=== PATIENT | female | born 1980 | race Caucasian/White ===

== ENCOUNTER 2022-10-16 21:00 | Emergency (ER) | payer BC ==
[2022-10-16 21:28] VITALS: RESP 18
--- NOTE | 2022-10-16 22:43 | ED ---
Headache HPI - General Chief Complaint: Headache Stated Complaint: Hypertension, Headache Time Seen by Provider: 10/16/22 21:45 Source: RN notes reviewed, old records reviewed Mode of arrival: ambulatory Limitations: no limitations - History of Present Illness Initial Comments: This is a 42-year-old female to the emergency department today. Patient has multiple complaints today. Patient initial complaint of headache as well as hypertension. Patient's blood pressure has been significantly elevated recently and today. Patient did take some medication for migraine yesterday which did help with recent headache. No current neurological symptoms. Patient is very concerned over elevated blood pressure. MD Complaint: headache, other (Elevated blood pressure) -: unknown Onset Description: gradual Severity scale (1-10): 4 (Blood pressure is asymptomatic aside from headache which is now resolved) Quality: aching Consistency: constant Improves With: nothing Worsens With: none Associated Symptoms: nausea Other Symptoms: chest pain Treatments Prior to Arrival: none - Related Data Previous Rx's Medication Instructions Recorded lisinopriL [Zestril] 5 mg PO DAILY 7 Days #7 tab 10/18/22 Allergies Allergy/AdvReac Type Severity Reaction Status Date / Time No Known Allergies Allergy Verified 10/16/22 21:21 Review of Systems ROS Statement: Those systems with pertinent positive or pertinent negative responses have been documented in the HPI. ROS Other: All systems not noted in ROS Statement are negative. Past Medical History Past Medical History: Hypertension History of Any Multi-Drug Resistant Organisms: None Reported Past Surgical History: No Surgical Hx Reported Past Psychological History: No Psychological Hx Reported Smoking Status: Never smoker Past Alcohol Use History: Occasional Past Drug Use History: Marijuana General Exam Limitations: no limitations General appearance: alert, in no apparent distress Head exam: Present: atraumatic, normocephalic, normal inspection Eye exam: Present: normal appearance, PERRL, EOMI. Absent: scleral icterus, conjunctival injection, periorbital swelling ENT exam: Present: normal exam, mucous membranes moist Neck exam: Present: normal inspection. Absent: tenderness, meningismus, lymphadenopathy Respiratory exam: Present: normal lung sounds bilaterally. Absent: respiratory distress, wheezes, rales, rhonchi, stridor Cardiovascular Exam: Present: regular rate, normal rhythm, normal heart sounds. Absent: systolic murmur, diastolic murmur, rubs, gallop, clicks GI/Abdominal exam: Present: soft, normal bowel sounds. Absent: distended, tenderness, guarding, rebound, rigid Extremities exam: Present: normal inspection, full ROM, normal capillary refill. Absent: tenderness, pedal edema, joint swelling, calf tenderness Back exam: Present: normal inspection Neurological exam: Present: alert, oriented X3, CN II-XII intact Psychiatric exam: Present: normal affect, normal mood Skin exam: Present: warm, dry, intact, normal color. Absent: rash Course Vital Signs 10/16/22 10/16/22 10/16/22 21:22 22:54 23:30 Temperature 97.7 F Pulse Rate 78 69 Respiratory 18 18 Rate Blood Pressure 176/133 189/108 155/85 O2 Sat by Pulse 96 97 Oximetry 10/17/22 00:09 Temperature 97.6 F Pulse Rate 70 Respiratory 18 Rate Blood Pressure 146/88 O2 Sat by Pulse 97 Oximetry - Reevaluation(s) Reevaluation #1: 10/16/22 22:43 Medical records reviewed Reevaluation #2: 10/16/22 23:33 Patient's blood pressures improved headache resolved Reevaluation #3: 10/16/22 23:33 Patient informed results and questions answered Reevaluation #4: 10/16/22 22:43 Was pt. sent in by a medical professional or institution (, PA, ADMINISTRATIVE SERVICES SPECIALIST, urgent care, hospital, or senior living...) When possible be specific @ -no Did you speak to anyone other than the patient for history (EMS, parent, family, police, friend...)? What history was obtained from this source @ -no Did you review nursing and triage notes (agree or disagree)? Why? @ -agree Are old charts reviewed (outside hosp., previous admission, EMS record, old EKG, old radiological studies, urgent care reports/EKG's, senior living records)? Report findings @ -yes Differential Diagnosis (chest pain, altered mental status, abdominal pain women, abdominal pain men, vaginal bleeding, weakness, fever, dyspnea, syncope, headache, dizziness, GI bleed, back pain, seizure, CVA, palpatations, mental health, musculoskeletal)? @ -prior EKG interpreted by me (3pts min.). @ -yes X-rays interpreted by me (1pt min.). @ -no CT interpreted by me (1pt min.). @ -no U/S interpreted by me (1pt. min.). @ -no What testing was considered but not performed or refused? (CT, X-rays, U/S, labs)? Why? @ -none What meds were considered but not given or refused? Why? @ -none Did you discuss the management of the patient with other professionals (professionals i.e. Dr., PA, ADMINISTRATIVE SERVICES SPECIALIST, lab, RT, psych nurse, family welfare social work professor, captain cannery tender, teacher, aoc director intelligence officer, case repairer)? Give summary @ -no Was smoking cessation discussed for >3mins.? @ -no Was critical care preformed (if so, how long)? @ -no Were there social determinants of health that impacted care today? How? (Homelessness, low income, unemployed, alcoholism, drug addiction, transportation, low edu. Level, literacy, decrease access to med. care, fpc, rehab)? @ -none Was there de-escalation of care discussed even if they declined (Discuss DNR or withdrawal of care, Hospice)? DNR status @ -no What co-morbidities impacted this encounter? (DM, HTN, Smoking, COPD, CAD, Cancer, CVA, ARF, Chemo, Hep., AIDS, mental health diagnosis, sleep apnea, morbid obesity)? @ -none Was patient admitted / discharged? Hospital course, mention meds given and route, prescriptions, significant lab abnormalities, going to OR and other pertinent info. @ - 42-year-old female with idiopathic hypertension and will be started on antihypertensive. Patient has hypertension and her history but also has episodes of weight loss which is help with her blood pressure. Current blood pressures been significantly elevated from prior with mild headache recently. Headache and blood pressure improved here in the ER she can be discharged home Discharge Undiagnosed new problem with uncertain prognosis? @ -no Drug Therapy requiring intensive monitoring for toxicity (Heparin, Nitro, Insulin, Cardizem)? @ -no Were any procedures done? @ -no Diagnosis/symptom? @ -New-onset hypertension Acute, or Chronic, or Acute on Chronic? @ -Acute Uncomplicated (without systemic symptoms) or Complicated (systemic symptoms)? @ -Complicated Side effects of treatment? @ -no Exacerbation, Progression, or Severe Exacerbation? @ -exacerbation Poses a threat to life or bodily function? How? (Chest pain, [place], [place], pneumonia, PE, COPD, DKA, ARF, appy, cholecystitis, CVA, Diverticulitis, Homicidal, Suicidal, threat to staff... and all critical care pts) @ -no Reevaluation #5: 10/16/22 23:33 Differential Headache: Migraine, tension, cluster, carbon monoxide, central venous thrombosis, pension karma temporal arteritis, acute closure glaucoma, intercranial hemorrhage, mastoiditis, sinusitis, head injury, this is not meant to be an all-inclusive list. Medical Decision Making - Medical Decision Making 42-year-old female with idiopathic hypertension and will be started on antihypertensive. Patient has hypertension and her history but also has episodes of weight loss which is help with her blood pressure. Current blood pressures been significantly elevated from prior with mild headache recently. Headache and blood pressure improved here in the ER she can be discharged home - EKG Data -: EKG Interpreted by Me (EKG is sinus 71 SC 178 QRS 80 QTC 418) Disposition Clinical Impression: Headache, Hypertension Disposition: HOME SELF-CARE Condition: Good Instructions (If sedation given, give patient instructions): Hypertension (ED) Prescriptions: lisinopriL [Zestril] 5 mg PO DAILY 7 Days #7 tab Is patient prescribed a controlled substance at d/c from ED?: No Referrals: Nick Christian MD [Primary Care Provider] - 1-2 days Time of Disposition: 23:30
[2022-10-16] MEDS ORDERED: cloNIDine HCL 0.2 MG TAB PO STA (22:44)
[2022-10-16] MEDS ORDERED: lisinopriL 10 MG TAB PO STA (22:44)
[2022-10-17 00:10] VITALS: BP 146/88; PULSE 70; TEMP 97.6
== END 2022-10-17 00:10 | disposition home or self-care (01) ==
LOC: EC 21:00
DX: R51.9 Headache, unspecified (principal); I10 Essential (primary) hypertension; F12.90 Cannabis use, unspecified, uncomplicated
CPT/HCPCS: 93005; 99284

== ENCOUNTER → 2022-11-15 | Outpatient (CLI) | payer BC ==
--- NOTE | 2022-11-16 09:58 | CA ---
Transthoracic Echo Report Name: More Peters Age: 42 Gender: F : 1980 Exam Date: 11/15/2022 14:22 Exam Location: [place] [facility] Ht (in): 68 Wt (lb): 226 Ordering Physician: Nick Christian MD Attending/Referring Phys: Gino GUZMÁN Polygraph Technician Jackie Yusuf RDCS Procedure CPT: Indications: I16.0 Hypertensive urgency Cardiac Hx: Technical Quality: Technically difficult study Contrast 1: Lumason Total Dose (mL): 4 Contrast 2: Total Dose (mL): MEASUREMENTS (Male / Female) Normal Values 2D ECHO LV Diastolic Diameter PLAX 3.3 cm 4.2 - 5.9 / 3.9 - 5.3 cm LV Systolic Diameter PLAX 2.2 cm IVS Diastolic Thickness 1.4 cm 0.6 - 1.0 / 0.6 - 0.9 cm LVPW Diastolic Thickness 1.4 cm 0.6 - 1.0 / 0.6 - 0.9 cm LV Relative Wall Thickness 0.9 RV Internal Dim ED PLAX 2.7 cm M-MODE Aortic Root Diameter MM 2.2 cm LA Systolic Diameter MM 3.3 cm LA Ao Ratio MM 1.5 DOPPLER LVOT Peak Velocity 93.4 cm/s LVOT Peak Gradient 3.5 mmHg LVOT Velocity Time Integral 19.6 cm MV Area PHT 3.0 cm??? Mitral E Point Velocity 62.3 cm/s Mitral A Point Velocity 80.9 cm/s Mitral E to A Ratio 0.8 MV Deceleration Time 255.8 ms MV E' Velocity 7.7 cm/s Mitral E to MV E' Ratio 8.1 TR Peak Velocity 174.3 cm/s TR Peak Gradient 12.2 mmHg Right Ventricular Systolic Press 17.2 mmHg FINDINGS Left Ventricle Moderately increased left ventricular wall thickness. Left ventricular cavity size normal. Normal left ventricular systolic function with no obvious regional wall motion abnormalities. Left ventricular ejection fraction is estimated at 55-60%. Right Ventricle Normal right ventricular size and function. Right ventricular systolic pressure within normal limits. Right Atrium Normal right atrial size. Left Atrium Normal left atrial size. Mitral Valve Structurally normal mitral valve. No mitral stenosis, regurgitation or prolapse. Aortic Valve No aortic valve stenosis or regurgitation. Tricuspid Valve Structurally normal tricuspid valve. Mild tricuspid regurgitation. Pulmonic Valve Structurally normal pulmonic valve. Pericardium No pericardial effusion. Aorta Normal size aortic root and proximal ascending aorta. CONCLUSIONS Technically difficult study for interpretation Normal LV systolic function. Normal pulmonary artery systolic pressure Normal RV systolic function No significant valvular abnormalities Previewed by: Dr. Romero Schuster MD (Electronically Signed) Final Date: 16 November 2022 09:57
== END | disposition home or self-care (01) ==
LOC: RADECHMAIN 14:20
PROVIDERS: ATTEND Family Medicine
DX: I16.0 Hypertensive urgency (principal)
CPT/HCPCS: 93306; Q9950

== ENCOUNTER → 2024-06-28 | Outpatient (CLI) | payer BC ==
--- NOTE | 2024-06-28 07:56 | MM ---
Reason for Exam: Screening (asymptomatic). Last mammogram was performed 1 year(s) and 8 month(s) ago. Patient History: Menarche at age 14. Patient has no children. Patient used Hormonal Contraceptives for 1 year. Risk Values: Marianna 5 year model risk: 0.7%. NCI Lifetime model risk: 10.9%. Prior Study Comparison: 04/04/2022 Bilateral MG 3D screening mammo w/cad, [facility]. 10/28/2022 Right MG 3D diag mammo w/cad RT - 2, [facility]. Tissue Density: The breasts are extremely dense, which lowers the sensitivity of mammography. Findings: Analyzed By CAD. Low axillary tail lymph nodes redemonstrated on the right. There is no suspicious group of microcalcifications or new suspicious mass in either breast. Overall Assessment: Benign, BI-RAD 2 Management: Screening Mammogram of both breasts in 1 year. Given the patient's extremely dense tissues, supplementary screening can be considered with breast ultrasound. Patient should continue monthly self-breast exams. A clinical breast exam by your physician is recommended on an annual basis. This exam should not preclude additional follow-up of suspicious palpable abnormalities. Note on Marianna scores and lifetime risk: 1. A Marianna score greater than 3% is considered moderate risk. If this is the case, consider specialist referral to assess eligibility for a risk reducing agent. 2. If overall lifetime risk for the development of breast cancer is 20% or higher, the patient may qualify for future screening with alternating mammogram and breast MRI. [facility], , 06/28/2024 7:52 AM. Electronically signed and approved by: Samuel Gonzalez M.D. Radiologist
== END | disposition home or self-care (01) ==
LOC: RADMAMWWP 07:30
PROVIDERS: ATTEND Obstetrics & Gynecology
DX: Z12.31 Encounter for screening mammogram for malignant neoplasm of breast (principal); R92.343 Mammographic extreme density, bilateral breasts; Z92.0 Personal history of contraception
CPT/HCPCS: 77063; 77067